=== PATIENT | male | born 1945 | race Caucasian/White ===

== ENCOUNTER 2016-10-20 09:57 | Emergency (ER) | payer MEDICARE, BC ==
[2016-10-20 10:31] LABS: Hematocrit 38.3 % (42.0-52.0); Hemoglobin 11.9 gm/dL (13.5-18.0); Mean Cell Volume 79.8 fl (78-100); Mean Corpuscular Hemoglobin 24.8 pg (27-31); Mean Corpuscular Hgb Conc 31.1 g/dl (32-36); Neutrophil # 4.1 K/mm3 (1.3-6.0); Neutrophil % 64.2 % (42-75.0); Platelet Count 236 K/mm3 (150-450); Red Cell Distribution Width 14.6 % (11.5-14.0); White Blood Count 6.5 K/mm3 (4.0-10.5)
--- NOTE | 2016-10-20 10:39 | ERNOTE ---
Medical Problem HPI - Narrative Date of Service: 10/20/16 - General Chief Complaint: General Assessment Time Seen by Provider: 10/20/16 10:12 Source: patient Exam Limitations: no limitations - Immun/Allergies/Home Medications Immunizations: IMMUNIZATION HX Immunizations Up to Date Yes Allergies/Adverse Reactions: Allergies No Known Allergies Allergy (Verified 10/20/16 10:28) Home Medications: HOME MEDICATIONS Aspirin [Aspirin Chewable] 81 mg PO DAILY 09/28/14 [Last Taken Unknown] Ipratropium [place] [Ipratropium [place] (Atrovent)] 0.5 mg IH PRN PRN 09/28/14 [Last Taken Unknown] Ranitidine HCl 150 mg PO DAILY 09/28/14 [Last Taken Unknown] amLODIPine BESYLATE [Norvasc] 5 mg PO DAILY PRN 09/28/14 [Last Taken Unknown] Atorvastatin Calcium [Lipitor] 20 mg PO DAILY 10/03/15 [Last Taken Unknown] Losartan/Hydrochlorothiazide [Hyzaar 100-25 Tablet] 100 mg PO DAILY 10/03/15 [ Last Taken Unknown] Hydrochlorothiazide [Hydrodiuril] 25 mg PO DAILY 10/20/16 [Last Taken Unknown] Rivaroxaban [Xarelto] 20 mg PO DAILY 10/20/16 [Last Taken Unknown] Sotalol HCl [Sotalol] 120 mg PO DAILY 10/20/16 [Last Taken Unknown] - History of Present History Narrative: Pt. comes in with c/o weakness, lightheadedness, and distal numbness intermittently not lasting longer than 30 minutes at a time for three weeks. Pt. states that a couple of times during the episodes he has checked his BP and it has been 80 systolic so he went to an emergency room in [place] and ws diagnosed with a TIA at that time but when it continued he called his PCP in [place] and they suggested that pt. may be dehydrated so pt. increased his water intake as he golfs a lot. Pt. also states that he is on blood pressure medications and diuretics for CHF with a 30% EF per his blade grinder last winter. Pt. has an ICD for Afib and and 5 stents for CAD. Review of Systems - Review of Systems Constitutional: Present: weakness, fatigue. Absent: fever, chills, malaise, decreased activity level EYE: Present: no symptoms reported ENT: Present: no symptoms reported. Absent: nose pain, nose congestion, nasal drainage, sore throat, throat swelling Respiratory: Present: no symptoms reported. Absent: shortness of breath, cough , wheezing Cardiology: Present: no symptoms reported. Absent: chest pain, palpitations, edema Gastrointestinal/Abdominal: Present: no symptoms reported. Absent: nausea, vomiting, diarrhea Genitourinary: Present: no symptoms reported. Absent: dysuria, decreased urinary output Musculoskeletal: Present: no symptoms reported. Absent: back pain, joint pain Skin: Present: no symptoms reported Neurological: Present: dizziness/light-headedness, weakness, numbness - B hands and feet. Absent: headache, tingling All Other Systems: All systems neg except as marked - Patient's Past Medical History Patient History - Medical: No pertinent hx Patient History - Cardiac/Respiratory: No pertinent hx Patient History - Cancer: Other Patient History - Surgical Procedures: Appendectomy, Back Surgery, Cardiac stent Patient History - Other: None - Social History Living Situations: home Abuse History: No History of abuse Psych History: No pertinent hx Alcohol Use: none Drug Use: none - Immunizations Immunizations Up to Date: Yes Physical Exam - Physical Exam General Appearance: Present: wd/wn, alert, no apparent distress Eye Exam: Normal inspection: bilateral, PERRL: bilateral, EOMI: bilateral Ears, Nose, Throat: Present: normal ENT inspection, normal pharynx Neck: Present: normal inspection, nontender. Absent: lymphadenopathy (R), lymphadenopathy (L) Respiratory: Present: no respiratory distress, normal breath sounds, no accessory muscle use, chest nontender, lungs clear Cardiovascular/Chest: Present: regular rate, rhythm, no murmur, normal peripheral pulses Gastrointestinal/Abdominal: Present: normal bowel sounds, nontender, nondistended, soft, no organomegaly Back Exam: Present: normal inspection, normal range of motion, no CVA tenderness , no vertebral tenderness Extremity Exam: Present: normal inspection, non-tender, normal range of motion, no edema Neurological Exam: Present: alert, oriented, normal mood/affect, no motor/ sensory deficits, 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 Absent: pallor, skin rash ED Progress - Date and Time Seen: Date and Time: 10/20/16 10:19 Pt. states that he had a normal CT scan three weeks ago and it was normal so he does not want another one. As pt. symptoms are resolved at this time and it will not likely yeild any results as this is likely relate to Hypotension, feel that this is appropriate. 10/20/16 10:37 Pt. orthostatic at this time so will administer 500ml IVF and recheck pt. CXR without pulmonary edema but with some pulmonary congestion so will administer as little fluid as possible to increase blood pressure. 10/20/16 13:49 Pt. asymptomatic and states he is ready to go home. Discussed with Dr Katz and we will cut pt. Hyzaar in half and have him call his blade grinder tomorrow. - Results and Orders Patient's Lab Results:: I have reviewed the patient's lab results. - Vital Signs Patient's Vital Signs:: I have reviewed the patient's vital signs. Vital Signs: Vital Signs 10/20/16 10:05 Temperature 36.4 C L Pulse Rate 70 Respiratory 12 Rate Blood Pressure 135/84 O2 Sat by Pulse 100 Oximetry - EKG EKG: nonspecific ST T wave changes, other - Atrial paced, IVCD, no acute EKG read: Reviewed by me EKG Comments: Interp by Dr Katz - X-Ray X-Ray #1 X-Ray: chest Interpretation: Reviewed by me X-ray Comments: no acute CP abnormality - Progress/Reassessment Chief Complaint: General Assessment Departure - Departure Clinical Impression: Dehydration Hypotension Qualifiers: Hypotension type: orthostatic hypotension Qualified Code(s): I95.1 - Orthostatic hypotension Disposition: Home self-care Condition: Good Instructions: Hypotension, [id number] Additional Instructions: Please follow up with your blade grinder by phone and cut hyzaar/losartan in half , Referrals: Woodrow Gillette DO [Primary Care Provider] -
[2016-10-20 10:52] LABS: ALT 18 U/L (19-67); AST 14 U/L (0-48); Albumin * 3.9 gm/dl (3.4-5.0); Alkaline Phosphatase * 57 U/L (50-170); Anion Gap 13.7 mmol/L (6.8-13.8); BNP * 2154 pg/mL (5-350); BUN/Creatinine Ratio 16.9 (9.0-21.6); Bilirubin, Total 0.4 mg/dL (0.0-1.1); Blood Urea Nitrogen 32 mg/dL (6-23); Ca. Corrected For Albumin 9.2 mg/dL (8.4-10.2); Calcium * 9.4 mg/dL (7.9-10.9); Carbon Dioxide 27.7 mmol/L (24-32.6); Chloride 102 mmol/L (97-106); Glucose * 92 mg/dL (70-110); Magnesium 2.1 mg/dL (1.2-2.8); Phosphorus 3.2 mg/dL (2.2-4.2); Potassium 4.4 mmol/L (3.4-4.6); Sodium 139 mmol/L (132-142); Total Protein 7.9 gm/dL (6.2-8.2); Troponin I Less than 0.017 ng/ml (0.00-0.10)
[2016-10-20] MEDS ORDERED: NORMAL SALINE 500 ML IV ONE (10:55)
[2016-10-20 13:41] LABS: Urine Appearance Clear; Urine Bilirubin Negative (NEGATIVE); Urine Blood Negative /ul (NEGATIVE); Urine Color Yellow; Urine Ketone Negative (NEGATIVE); Urine Nitrite Negative (NEGATIVE); Urine Protein Negative (NEGATIVE); Urine Specific Gravity 1.015 SP.GR. (1.005-1.030); Urine Urobilinogen Normal (NORMAL); Urine WBC 0-5 /hpf (0-5)
[2016-10-20 13:42] LABS: Urine Bacteria None Seen; Urine RBC None Seen /hpf (0-5)
[2016-10-20 13:51] VITALS: BP 124/74
== END 2016-10-20 14:04 | disposition home or self-care (01) ==
LOC: ER 09:57
DX: E86.0 Dehydration (principal); I95.1 Orthostatic hypotension; Z95.810 Presence of automatic (implantable) cardiac defibrillator; I48.91 Unspecified atrial fibrillation; I25.10 Atherosclerotic heart disease of native coronary artery without angina pectoris; Z95.5 Presence of coronary angioplasty implant and graft